=== PATIENT | female | born 1955 | race Caucasian/White ===

== ENCOUNTER 2017-04-22 08:16 | Day surgery (SDC) | payer OTHER | END 2017-04-22 10:55 | disposition home or self-care (01) | LOC: GIL 08:16 | DX: Z12.11 Encounter for screening for malignant neoplasm of colon (principal); K64.8 Other hemorrhoids; I10 Essential (primary) hypertension | CPT/HCPCS: 45378 ==

== ENCOUNTER 2018-09-20 09:18 | Day surgery (SDC) | payer OTHER ==
[2018-09-20] MEDS ORDERED: MIDAZOLAM 1 MG/ML 2 ML INJ ×3 (11:39)
[2018-09-20] MEDS ORDERED: FENTAnyl 50 MCG/ML VIAL (11:39)
== END 2018-09-20 15:34 | disposition home or self-care (01) ==
LOC: GIL 09:18
DX: Z12.11 Encounter for screening for malignant neoplasm of colon (principal); K64.8 Other hemorrhoids; I10 Essential (primary) hypertension
CPT/HCPCS: 45378